=== PATIENT | male | born 1975 | race Caucasian/White ===

== ENCOUNTER 2018-07-25 13:53 | Emergency (ER) ==
[2018-07-25 14:07] VITALS: BP 119/74; BMI 35.2
--- NOTE | 2018-07-25 14:27 | ED.PDOC ---
General ED Provider: Dr. ANNEL HERNANDEZ Chief Complaint: Respiratory Complaint Stated Complaint: Fever and chills, Cough and congestion. Upper abdomen lower mid chest wall pain. Onset earlier this morning while driving to [facility] with his . Time Seen by Physician: 14:10 Mode of Arrival: Walk-In Information Source: Patient Exam Limitations: No limitations Nursing and Triage Documentation Reviewed and Agree: Yes (FEVER, CHILLS, BODY ACHES, PRODUCTIVE COUGH) Does patient meet sepsis criteria?: Yes If yes, has appropriate treatment been initiated?: Yes System Inflammatory Response Syndrome: Temp 101F or Greater, Pulse >90 BPM, Resp >20/Minute Sepsis Protocol: For patient's 13 years and over: Temp is 96.8 and below OR 101 and greater Pulse >90 BPM Resp >20/minute Acutely Altered Mental Status Are patient's symptoms suggestive of a new infection, such as: -Pneumonia -Skin, Soft Tissue -Endocarditis -UTI -Bone, Joint Infection -Implantable Device -Acute Abdominal Infection -Wound Infection -Meningitis -Blood Stream Catheter Infection -Unknown Respiratory Complaint Exam - Respiratory Complaint/Exam Onset/Duration: 2 hrs Symptoms Are: Still present Timing: Constant Initial Severity: Moderate Current Severity: Moderate Location: Chest Character: Reports: Non-productive cough Aggravating: Reports: URI, Deep breaths, Recumbent position Alleviating: Reports: Upright position Associated Signs and Symptoms: Reports: Rapid breathing, Dyspnea, Fever, Chills , Chest pain, Pleuritic chest pain, Wheezing. Denies: Hemoptysis, Dizziness, Calf pain, Calf swelling, Edema, URI, Nasal congestion, Hoarseness, Sinus discomfort, Vomiting, Sore throat, Weight loss, Decreased oral intake, Increased thirst, Increased appetite, Increased urination Related History: Denies: Similar episode History of Healthcare-Acquired Pneumonia: No Related Surgical History: Reports: Defibrillator Pulmonary Embolism Risk Factors: None Cardiac Risk Factors: Reports: None Pseudomonas Risk Factors: Reports: None Tuberculosis Risk Factors: Reports: None Status Asthmaticus Risk Factors: Reports: None Home Oxygen Use: No Recent Stress Test: No Recent Echo/LV Function: No Current Antibiotic Use: No Current Asthma Medication Use: No Respiratory Distress: Mild Inadequate Respiratory Effort: No Review of Systems - Review Of Systems Constitutional: Reports: Chills, Fever, Malaise, Sweats, Loss of appetite Eyes: Reports: No symptoms Ears, Nose, Mouth, Throat: Reports: No symptoms Respiratory: Reports: Cough, Short of air, Wheezing Cardiac: Reports: No symptoms GI: Reports: No symptoms : Reports: No symptoms Musculoskeletal: Reports: No symptoms Skin: Reports: No symptoms Neurological: Reports: No symptoms Endocrine: Reports: No symptoms Hematologic/Lymphatic: Reports: No symptoms All Other Systems: Reviewed and Negative Past Medical History - Past Medical History Previously Healthy: Yes Endocrine: Reports: None Cardiovascular: Reports: None Respiratory: Reports: None Hematological: Reports: None Gastrointestinal: Reports: None Genitourinary: Reports: None Neuro/Psych: Reports: None Musculoskeletal: Reports: None Cancer: Reports: None - Surgical History General Surgical History: Reports: None - Family History Family History: Reports: None - Social History Smoking Status: Former smoker Hx Substance Use: No Alcohol Screening: None Physical Exam - Physical Exam Appearance: Ill-appearing, Obese Ill-appearing: Mild Pain Distress: None Eyes: LUDWIG, EOMI, Conjunctiva clear ENT: Ears normal, Nose normal, Oropharynx normal Neck: Supple Respiratory: Airway patent, Breath sounds diminished, Wheezes Cardiovascular: RRR, Pulses normal, No rub, No murmur GI/: Tender (high to mid epigastrium) Musculoskeletal: Normal strength, ROM intact, No edema, No calf tenderness Skin: Warm, Dry, Normal color Neurological: Sensation intact, Motor intact, Reflexes intact, Cranial nerves intact, Alert, Oriented Interpretation - Radiology Interpretation Radiology Results: No acute changes (small isolated nodule) Exam Interpreted: CXR Critical Care Note - Critical Care Note Total Time (mins): 60 Course - Course Hematology/Chemistry: 07/25/18 14:40 07/25/18 14:40 Orders, Labs, Meds: Lab Review 07/25/18 07/25/18 07/25/18 14:10 14:10 14:40 WBC 12.34 H RBC 4.74 Hgb 14.5 Hct 40.2 L MCV 84.8 MCH 30.6 MCHC 36.1 H RDW Coeff of Ziggy 12.2 Plt Count 203 Immature Gran % (Auto) 0.6 Neut % (Auto) 77.1 Lymph % (Auto) 15.7 [place] % (Auto) 5.8 Eos % (Auto) 0.6 Baso % (Auto) 0.2 Immature Gran # (Auto) 0.1 Neut # (Auto) 9.5 H Lymph # (Auto) 1.9 [place] # (Auto) 0.7 Eos # (Auto) 0.1 Baso # (Auto) 0.0 Sodium Potassium Chloride Carbon Dioxide Anion Gap BUN Creatinine Estimated GFR (MDRD) BUN/Creatinine Ratio Glucose Uric Acid Calcium Total Bilirubin AST ALT Alkaline Phosphatase Total Creatine Kinase CK-MB (CK-2) CK-MB (CK-2) % Troponin I Total Protein Albumin Globulin Albumin/Globulin Ratio Urine Color Urine Clarity Urine pH Ur Specific [place] Urine Protein Urine Glucose (UA) Urine Ketones Urine Blood Urine Nitrite Urine Bilirubin Urine Urobilinogen Ur Leukocyte Esterase Influ A Molecular Assay Negative by naat Influ B Molecular Assay Negative by naat RSV Antigen Negative by naat 07/25/18 07/25/18 07/25/18 14:40 14:40 20:03 WBC RBC Hgb Hct MCV MCH MCHC RDW Coeff of Ziggy Plt Count Immature Gran % (Auto) Neut % (Auto) Lymph % (Auto) [place] % (Auto) Eos % (Auto) Baso % (Auto) Immature Gran # (Auto) Neut # (Auto) Lymph # (Auto) [place] # (Auto) Eos # (Auto) Baso # (Auto) Sodium 137.3 Potassium 4.09 Chloride 103.8 Carbon Dioxide 21.6 L Anion Gap 15.99 BUN 13.7 Creatinine 1.13 H Estimated GFR (MDRD) 72.00 BUN/Creatinine Ratio 12.12 Glucose 100.1 Uric Acid 9.10 H Calcium 9.00 Total Bilirubin 0.83 AST 33.8 ALT 33.0 Alkaline Phosphatase 60.8 Total Creatine Kinase 469.9 H CK-MB (CK-2) 3.020 H CK-MB (CK-2) % 0.6400 Troponin I < 0.012 Total Protein 7.30 Albumin 4.22 Globulin 3.08 Albumin/Globulin Ratio 1.37 Urine Color Yellow Urine Clarity Clear Urine pH 6.0 Ur Specific [place] 1.010 Urine Protein Negative Urine Glucose (UA) Negative Urine Ketones Negative Urine Blood Negative Urine Nitrite Negative Urine Bilirubin Negative Urine Urobilinogen 0.2 Ur Leukocyte Esterase Negative Influ A Molecular Assay Influ B Molecular Assay RSV Antigen Orders Category Date Time Status EKG-(ED ONLY) Stat CARDIO 07/25/18 16:57 Completed NEBULIZER TREATMENT Stat CARDIO 07/25/18 17:01 Completed IV [ED IV/MEDIPORT/POWERPORT] .ONCE EMERGENCY 07/25/18 14:15 Active BLOOD CULTURE Stat LAB 07/25/18 14:40 Received CBC W/ AUTO DIFF Stat LAB 07/25/18 14:40 Completed CMP [COMPREHENSIVE METABOLIC PANEL] Stat LAB 07/25/18 14:40 Completed CREATINE KINASE Stat LAB 07/25/18 14:40 Completed FLU A & B MOLECULAR [FLU A/B MOLECULAR] Stat LAB 07/25/18 14:10 Completed MOLECULAR GROUP A STREP Stat LAB 07/25/18 14:10 Completed RSV Stat LAB 07/25/18 14:10 Completed TROPONIN I Stat LAB 07/25/18 14:40 Completed UA [URINALYSIS C & S IF INDICATED] Stat LAB 07/25/18 20:03 Completed URIC ACID Stat LAB 07/25/18 14:40 Completed 0.9 % Sodium Chloride [Saline Flush] MEDS 07/25/18 14:16 Active 1 syr IVF PRN PRN Acetaminophen [Tylenol] MEDS 07/25/18 15:22 Discontinued 650 mg PO ONCE STA Acetaminophen [Tylenol] MEDS 07/25/18 15:22 Discontinued 650 mg RC ONCE STA Ipratropium/Albuterol Neb [Duoneb] MEDS 07/25/18 17:01 Discontinued 1 vial NEB ONCE STA Ketorolac Tromethamine [Toradol] MEDS 07/25/18 16:58 Discontinued 30 mg IVP ONCE STA Levofloxacin [Levaquin] MEDS 07/25/18 21:02 Stat 500 mg PO ONCE STA Potassium Chloride in 0.9%NaCl [Sodium Chloride 0.9%- MEDS 07/25/18 17:04 Active KCl 20 Meq] 1,000 ml IV 250 mls/hr Sodium Chloride 0.9% [Sodium Chloride] 1,000 ml MEDS 07/25/18 15:24 Discontinued IV BOLUS CHEST, 1V AP ONLY Stat RADS 07/25/18 14:[address] ABDOMEN/PELVIS WO CONTRAST Stat RADS 07/25/18 19:[address] CHEST W/O CONTRAST Stat RADS 07/25/18 19:24 Completed Medications Generic Name Dose Route Start Last Admin Trade Name Freq PRN Reason Stop Dose Admin Sodium Chloride 1 syr 07/25/18 14:16 07/25/18 15:40 Saline Flush IVF 1 syr PRN PRN Administration To flush IV Discontinued Medications Generic Name Dose Route Start Last Admin Trade Name Sher PRN Reason Stop Dose Admin Acetaminophen 650 mg 07/25/18 15:22 07/25/18 15:27 Tylenol PO 07/25/18 15:23 650 mg ONCE STA Administration Acetaminophen 650 mg 07/25/18 15:22 07/25/18 15:40 Tylenol RC 07/25/18 15:23 Not Given ONCE STA Albuterol/Ipratropium 1 vial 07/25/18 17:01 07/25/18 17:10 Duoneb NEB 07/25/18 17:02 1 vial ONCE STA Administration Sodium Chloride 1,000 mls @ 1,000 mls/hr 07/25/18 15:24 07/25/18 15:40 Sodium Chloride IV 07/25/18 16:23 1,000 mls/hr BOLUS STA Administration Potassium Chloride/Sodium Chloride 1,000 mls @ 250 mls/hr 07/25/18 17:04 01/03 17:22 Sodium Chloride 0.9%-Kcl 20 Meq IV 07/25/18 21:03 250 mls/hr .Q4H STA Administration Ketorolac Tromethamine 30 mg 07/25/18 16:58 07/25/18 17:21 Toradol IVP 07/25/18 16:59 30 mg ONCE STA Administration Levofloxacin 500 mg 07/25/18 21:02 Levaquin PO 07/25/18 21:03 ONCE STA Vital Signs: Temp Pulse Resp BP Pulse Ox 07/25/18 16:48 100.1 F H 07/25/18 15:21 102.3 F H 07/25/18 13:55 102.9 F H 120 H 24 119/74 95 Departure - Departure Time of Disposition: 21:00 Disposition: HOME SELF-CARE Discharge Problem: Community acquired pneumonia, Splenomegaly Discharge Problem: (Ruled Out): Spleen absent Instructions: Community Acquired Pneumonia (ED) Condition: Good Pt referred to PMD for follow-up: Yes (See PCP in 1 week ) IPMP verified?: No Additional Instructions: Meds as directed Take Mucinex 1 twice daily Follow up PCP for re evaluation and review of imaging Follow up eval of splenomegaly Allergies/Adverse Reactions: Allergies No Known Allergies Allergy (Unverified 07/25/18 13:54) Home Medications: Ambulatory Orders 1 [No Reported Medications] 07/25/18
--- NOTE | 2018-07-25 15:06 | DI ---
EXAM: Single view of the chest. History: Cough. Findings: Heart is mildly enlarged. No focal consolidation. No appreciable pleural fluid and no pn eumothorax. No acute osseous abnormalities. Sub-centimeter nodular density within the left lower oma ng. Impression: 1. Mild cardiomegaly without acute disease in the chest. 2. Left lower lobe nodular density could represent calcified granuloma but difficult to characterize without old chest radiographs. Please correlate with old chest radiographs if they are available, o therwise consider correlation with chest CT.
[2018-07-25] MEDS: TYLENOL PO STA (15:27)
[2018-07-25] MEDS: SODIUM CHLORIDE 1,000 ML IV STA (15:40)
[2018-07-25] MEDS: TYLENOL RC STA (15:40)
[2018-07-25 16:48] VITALS: TEMP 100.1
[2018-07-25] MEDS ORDERED: FOLIC ACID 1 MG, THIAMINE 100 MG, INFUVITE ADULT 10 ML in SODIUM CHLORIDE 0.9%-KCL 20 M... IV SCH (17:00)
[2018-07-25] MEDS: DUONEB NEB STA (17:10)
[2018-07-25] MEDS: TORADOL IVP STA (17:21)
[2018-07-25] MEDS: SODIUM CHLORIDE 0.9%-KCL 20 MEQ 1,000 ML IV STA (17:22)
--- NOTE | 2018-07-25 20:03 | CT ---
EXAM: CT scan of the chest without contrast HISTORY: Cough TECHNIQUE: Helical imaging of the chest was performed without contrast. 5 mm thin axial images and coronal and sagittal reconstructions were provided for interpretation. Comparison none. FINDINGS: The heart is normal size. No mediastinal anomalies are seen. There is infiltrate seen in the posterior right upper lobe of the lung. The lungs are otherwise clear. There is no pleural eff usion. The osseous structures are normal. IMPRESSION: Right upper lobe pneumonia.
--- NOTE | 2018-07-25 20:08 | CT ---
EXAM: CT abdomen and pelvis without contrast. HISTORY: Body aches. TECHNIQUE: Multi-slice transaxial helical CT. Coronal and sagittal reformatons were performed. COMPARISON: None FINDINGS: The heart is normal in size. A calcified granuloma is seen within the left lung base. The spleen is mildly enlarged measuring up to 14.2 cm in length. Evaluation of the solid organs is l imited without IV contrast. The spleen is normal in size. The pancreas and the bilateral adrenal gl ands appear grossly unremarkable. No hydronephrosis or renal calculus is seen. No intrahepatic bili justin ductal dilation is seen. The bowel is not dilated. Prostate is normal in size. Urinary bladder appears grossly unremarkable. Submucosal fat deposition is suggested within the colon. No evidence of pericolonic stranding dens ities are present. Submucosal fat deposition is also seen within the terminal ileum. The appendix i s not clearly identified. No pelvic free fluid is seen. No retroperitoneal adenopathy is seen. Oss eous structures appear grossly unremarkable. IMPRESSION: 1. No acute abdominal findings. 2. Mild splenomegaly. 3. Submucosal fat deposition in the colon and terminal ileum. This can be seen with chronic inflamm ation.
[2018-07-25] MEDS: LEVAQUIN PO STA (21:12)
== END 2018-07-25 21:45 | disposition home or self-care (01) ==
LOC: ED 13:53
DX: J18.9 Pneumonia, unspecified organism (principal); R16.1 Splenomegaly, not elsewhere classified
CPT/HCPCS: 36415; 80053; 81001; 82550; 82553; 84484; 84550; 85025; 87040; 87502; 87651; 87801; 93005; 93010; 94640; 96361; 96374; 99284